=== PATIENT | female | born 1960 | race African-American/Black ===

== ENCOUNTER 2016-05-24 08:18 | Day surgery (SDC) | payer OTHER ==
[~2016-05-24] VITALS: Ht 165.1 cm; Wt 59.4 kg
[~2016-05-24 08:18] MED LIST: BUDE180A IH; BUPIVACAINE MPF 0.5% 30 ML VIAL. ONE; CEFAZOLIN 1GM IVPB FOR OMNI 50 ML IV PRN; CYCL5TAB PO; DOXY100C14 PO; FENTANYL PF 100 MCG/2 ML VIAL. IV PRN; HYDR-971 PO; HYDR12.58 PO; HYDROMORPHONE 2 MG/ML VIAL. IV PRN; IBUP-1007 PO; IV RINGERS,LACTATED 1000ML 1,000 ML IV SCH; LIDOCAINE 1% 1 ML SYRINGE. ID PRN; LIDOCAINE 1% 20 ML VIAL. ONE; MORPHINE SULFATE 2 MG/ML DISP.SYRIN. IV PRN; ONDANSETRON PF 4 MG/2 ML VIAL. IV PRN; OXYC-323 PO; PROCHLORPERAZINE 10 MG/2 ML VIAL. IV PRN; SIMV40TA3 PO; VENTOLIN HFA18 GM IH; flexeril PO
--- NOTE | 2016-05-24 08:29 | PDOC ---
BRIEF OPERATIVE NOTE Date: May 24, 2016 Pre-Op Diagnosis R CTS Post-Op Diagnosis same Procedure Performed Open R CTR Surgeon Yair Anesthesia Type: Regional, Conscious Sedation Complications none AMERICO BROWN II, MD May 24, 2016 08:29
--- NOTE | 2016-05-24 08:29 | DISCH ---
DISCHARGE INSTRUCTIONS Condition on Discharge Condition on Discharge: Stable Activity After Discharge Activity Instructions for Disc: Other, see below Bathing Instructions: Shower-keep dressing dry Lifting Instructions after Dis: No heavy lifting, No pulling or pushing, Do not lift >10 pounds Weight Bearing Status after Di: As tolerated Diet after Discharge Diet after Discharge: Regular Wound Incision Care Wound/Incision Care: Ice to area for comfort, Keep wound/cast CDI, Keep wound elevated, Change dressing Contacting the DRAng after DC Call your doctor for: Concerns you may have Follow-Up Follow up with: Yair/Orlin in 2wks AMERICO BROWN II, MD May 24, 2016 08:28
[2016-05-24] MEDS ORDERED: MIDAZOLAM HCL/PF 2 MG/2 ML VIAL. ONE (09:27)
[2016-05-24] MEDS ORDERED: PROPOFOL 20 ML IV ONE (09:27)
[2016-05-24] MEDS ORDERED: LIDOCAINE 2% 100 MG/5 ML SYRINGE. ONE (09:27)
[2016-05-24] MEDS ORDERED: DEXAMETHASONE SOD PHOS 20 MG/5 ML VIAL. ONE (09:27)
[2016-05-24] MEDS ORDERED: ONDANSETRON PF 4 MG/2 ML VIAL. ONE (09:27)
[2016-05-24] MEDS ORDERED: FENTANYL PF 100 MCG/2 ML VIAL. ONE (09:27)
[2016-05-24] MEDS ORDERED: SEVOFLURANE 16 TO 30 MINUTES. IH ONE (10:47)
[2016-05-24] MEDS: FENTANYL PF 100 MCG/2 ML VIAL. IV PRN ×2 (11:07→11:25)
--- NOTE | 2016-05-24 11:39 | OP ---
DATE OF SURGERY: 05/24/2016 SURGEON: Jn Brown MD ANESTHESIA: General. PREOPERATIVE DIAGNOSIS: Right carpal tunnel syndrome. POSTOPERATIVE DIAGNOSIS: Right carpal tunnel syndrome. PROCEDURE PERFORMED: Open right carpal tunnel release. TOURNIQUET TIME: 13 minutes. ESTIMATED BLOOD LOSS: 5 mL. COMPLICATIONS: None. REASON FOR PROCEDURE: The patient is a very pleasant 55-year-old female with electromyographically proven carpal tunnel syndrome and consistent clinical exam with this as well. She had gotten good initial relief from a corticosteroid injection; however, it did not give her lasting relief. We discussed the risks, benefits, alternatives to continued conservative therapy versus operative intervention and she elected to proceed with surgery. DESCRIPTION OF PROCEDURE: The patient was greeted in the preoperative area by myself. Correct extremity was marked and verified. After the anesthesiology team discussed different anesthetics, she opted to have a general with an LMA. She was taken back to the operative suite after I marked her arm and had successful induction of general anesthesia after we transferred her gently supine to the OR table. We then attached the arm board to her right side as well as a tourniquet at her right upper arm. The right upper extremity was then prepped and draped in our usual sterile fashion. We then conducted a standard preoperative timeout. I then exsanguinated the extremity with an Esmarch and tourniquet was insufflated to 250 mmHg. After this, I made a straight longitudinal incision centered at her palmar crease proceeding to her distal wrist crease. I dissected the subcutaneous tissue with tenotomies and cauterized bleeders with bipolar cautery. I identified the palmar fascia and incised this in line with the skin incision. I then identified the transverse carpal ligament and used a scalpel to transect this. I then placed a self-retaining retractor to spread apart the incision and a Ragnell at its distal portion and then spread above and below the remainder of the transverse carpal ligament and transected this with my tenotomies. I then repeated this maneuver in an ulnar directed fashion at the proximal portion of the incision to release the distal antebrachial fascia. After this, I cauterized another small bleeder and then irrigated out the operative field with sterile normal saline. The incision was then closed with a combination of mattress and simple 2-0 nylon. I then infiltrated the john-incisional area with a 50:50 local anesthetic mixture, using approximately 10 mL. After this, the arm was cleansed and dried and sterile dressing followed by a soft bulky dressing was applied. Tourniquet was let down. She was awakened from anesthesia, extubated, and transferred gently supine to the recovery room cart and taken to PACU in stable and extubated condition. Postop plan is to discharge her home. She will follow up with myself in clinic in 2 weeks, sooner should problems arise. JN BROWN MD DR: LEWIS/lakisha JOB#: [id number] / [id number] JESSICA
[2016-05-24] MEDS ORDERED: OXYC-244 PO ×2 (11:41→11:42)
[2016-05-24] MEDS ORDERED: ONDA4TAB10 SL (11:43)
[2016-05-24] MEDS ORDERED: DOCU-27 PO (11:44)
[2016-05-24] MEDS ORDERED: OXYCODONE/APAP 7.5/325 TABLET. PO ONE (12:00)
[2016-05-24 12:13] VITALS: BP 121/63
== END 2016-05-24 12:35 | disposition home or self-care (01) ==
LOC: SURG 08:18
PROVIDERS: ATTEND Orthopaedic Surgery Sports Medicine
DX: G56.01 Carpal tunnel syndrome, right upper limb (principal); E78.00 Pure hypercholesterolemia, unspecified; I10 Essential (primary) hypertension; J45.909 Unspecified asthma, uncomplicated; M19.90 Unspecified osteoarthritis, unspecified site; Z90.710 Acquired absence of both cervix and uterus; Z72.89 Other problems related to lifestyle
CPT/HCPCS: 64721; J0690; J1100; J2250; J2405; J2704; J3010; J3490

== ENCOUNTER → 2016-08-30 | Outpatient (CLI) | payer OTHER ==
[~2016-08-30] MED LIST changes: -BUPIVACAINE MPF 0.5% 30 ML VIAL. ONE; -CEFAZOLIN 1GM IVPB FOR OMNI 50 ML IV PRN; +DOCU-109 PO; -FENTANYL PF 100 MCG/2 ML VIAL. IV PRN; -HYDROMORPHONE 2 MG/ML VIAL. IV PRN; -IV RINGERS,LACTATED 1000ML 1,000 ML IV SCH; -LIDOCAINE 1% 1 ML SYRINGE. ID PRN; -LIDOCAINE 1% 20 ML VIAL. ONE; -MORPHINE SULFATE 2 MG/ML DISP.SYRIN. IV PRN; +ONDA4TAB10 SL; -ONDANSETRON PF 4 MG/2 ML VIAL. IV PRN; +OXYC-327 PO; -PROCHLORPERAZINE 10 MG/2 ML VIAL. IV PRN
--- NOTE | 2016-08-31 08:47 | RAD ---
DATE: 08/30/2016 EXAM: DIGITAL SCREEN BILAT W/CAD HISTORY: Screening COMPARISON: 06/16/2015 This study was interpreted with the benefit of Computerized Aided Detection (CAD ). FINDINGS: Breast Density: . There has been little change compared to the previous exam IMPRESSION: Benign findings BI-RADS CATEGORY: 2 BENIGN FINDING(S) RECOMMENDED FOLLOW-UP: 12M 12 MONTH FOLLOW-UP PQRS compliance statement: Patient information was entered into a reminder system with a target due date 08/30/2017 for the next mammogram. Mammography is a sensitive method for finding small breast cancers, but it does not detect them all and is not a substitute for careful clinical examination. A negative mammogram does not negate a clinically suspicious finding and should not result in delay in biopsying a clinically suspicious abnormality. "Our facility is accredited by the [employer] Mammography Program." MEGHANND
== END | disposition home or self-care (01) ==
LOC: MAMMO 12:55
PROVIDERS: ATTEND Family Medicine
DX: Z12.31 Encounter for screening mammogram for malignant neoplasm of breast (principal)
CPT/HCPCS: G0202; 77067

== ENCOUNTER → 2017-08-31 | Outpatient (CLI) | payer OTHER | END | disposition home or self-care (01) | LOC: MAMMO 13:58 | DX: Z12.31 Encounter for screening mammogram for malignant neoplasm of breast (principal); I10 Essential (primary) hypertension; E11.9 Type 2 diabetes mellitus without complications; E78.5 Hyperlipidemia, unspecified; E78.00 Pure hypercholesterolemia, unspecified; K21.9 Gastro-esophageal reflux disease without esophagitis | CPT/HCPCS: 77067 ==

== ENCOUNTER 2017-10-08 06:05 | Day surgery (SDC) | payer OTHER ==
[~2017-10-08] VITALS: Ht 162.6 cm; Wt 58.1 kg
[~2017-10-08 06:05] MED LIST changes: +ALEN70TA3 PO; +ASPI-630 PO; +BUPIVACAINE 0.5% 50 ML VIAL. ONE; +CALC1TAB75 PO; +LIDOCAINE 1% PF 30 ML VIAL. ONE; +MELO7.5T29 PO; +PROAIR RESPICL90 MCG IH; +ZOLP5TAB PO
[2017-10-08] MEDS ORDERED: LIDOCAINE 1% PF 2 ML VIAL. ID PRN (07:00)
[2017-10-08] MEDS ORDERED: HYDROmorphone 2 MG/ML VIAL IV PRN (07:00)
[2017-10-08] MEDS ORDERED: PROCHLORPERAZINE 10 MG/2 ML VIAL. IV PRN (07:00)
[2017-10-08] MEDS ORDERED: ONDANSETRON PF 4 MG/2 ML VIAL. IV PRN (07:00)
[2017-10-08] MEDS ORDERED: MORPHINE SULFATE 2 MG/ML VIAL. IV PRN (07:00)
[2017-10-08] MEDS ORDERED: IV RINGERS,LACTATED 1000ML 1,000 ML IV SCH (07:00)
[2017-10-08] MEDS ORDERED: fentaNYL PF VIAL 100 MCG/2 ML VIAL IV PRN (07:00)
[2017-10-08] MEDS ORDERED: PROPOFOL 20 ML IV ONE (07:27)
[2017-10-08] MEDS ORDERED: LIDOCAINE 2% PF Vial for OR 5 ML VIAL. ONE (07:27)
[2017-10-08] MEDS ORDERED: ONDANSETRON PF 4 MG/2 ML VIAL. ONE (07:27)
[2017-10-08] MEDS ORDERED: fentaNYL PF VIAL 100 MCG/2 ML VIAL ONE ×2 (07:27→08:49)
[2017-10-08] MEDS ORDERED: DEXAMETHASONE SOD PHOS 20 MG/5 ML VIAL. ONE (07:27)
[2017-10-08] MEDS ORDERED: ePHEDrine PF IN SALINE 50 MG/5 ML DISP.SYRIN IV ONE (08:04)
[2017-10-08] MEDS ORDERED: LIDOCAINE 1% PF 30 ML VIAL. INJ ONE (08:15)
--- NOTE | 2017-10-08 08:36 | DISCH ---
DISCHARGE INSTRUCTIONS Condition on Discharge Condition on Discharge: Stable Activity After Discharge Activity Instructions for Disc: Other, see below Bathing Instructions: Shower-keep dressing dry Lifting Instructions after Dis: No heavy lifting, No pulling or pushing, Do not lift >10 pounds Weight Bearing Status after Di: As tolerated Diet after Discharge Diet after Discharge: Regular Wound Incision Care Wound/Incision Care: Ice to area for comfort, Keep wound/cast CDI, Keep wound elevated, Change dressing Other wound/incision instructi: ok to change dressing in 2 days Contacting the DRAng after DC Call your doctor for: Concerns you may have Follow-Up Follow up with: Yair in 2 days AMERICO BROWN II, MD Oct 08, 2017 08:36
--- NOTE | 2017-10-08 08:41 | PDOC4 ---
Operative Note Operative Note Date of procedure: 10/08/2017 Surgeon: Jn Brown Preoperative diagnosis: Left carpal tunnel syndrome Postoperative diagnosis: Same Procedure performed: Open left carpal tunnel release Anesthesia: Gen. Tourniquet time: Less than 30 minutes Blood loss: 2 mL Findings: Normal-appearing median nerve Complications: None Reason for procedure: Patient is a very pleasant 56-year-old female who underwent successful open right carpal tunnel release with myself several weeks ago, she had bilateral disease, she had failed conservative therapies including injections, anti-inflammatories, wrist splints. She wished to proceed with surgery on the left side as she had felt she had recovered well enough on her right side. We reviewed the risks, benefits, and alternatives. Description of procedure: Patient was greeted in the preoperative area by myself for the correct extremity was verified and marked. She was taken back to the operative suite, antibiotic started as she was brought back. Once in the operating room, transferred gently supine to the operating room table. Underwent successful induction of a general anesthetic. The hand board attached to the OR table. Nonsterile tourniquet applied to her left upper extremity. Left upper extremity then prepped and draped in our usual sterile fashion. We conducted our standard preoperative timeout. The extremity was exsanguinated with an Esmarch and tourniquet insufflated to 250 mmHg. I then made an incision through a palmar wrist crease from her distal wrist crease into her palm. I incised skin with a scalpel and used bipolar cautery for a couple of bleeders. I then used a mosquito to dissect the subcutaneous tissue and placed my self- retaining retractor. After this, used a scalpel to incise the palmar fascia in line with the skin incision and identified the transverse carpal ligament and released sharply. I then placed a Ragnell retractor at the distal extent of the incision and spread above and below a small remaining portion of my transverse carpal ligament with tenotomies and release this. I then repeated this maneuver and an ulnar directed fashion to release the distal antebrachial fascia in the proximal portion of the incision. I then used the tip of the tenotomies to palpate along the entire course of the nerve to help ensure that accomplished a complete release, which I was confident I had. I then irrigated out the incision and closed skin with 3-0 nylon in a horizontal mattress fashion. The arm and hand were then cleansed and dried, injected my local anesthetic mixture into the john-incisional area. After this, a sterile bulky soft dressing was applied. She was then awakened from anesthesia. No complications. All counts correct 2 prior to wound closure. At the conclusion of the surgery, she was transferred gently supine to the recovery room cart and taken to the PACU in a stable and extubated condition. Postoperative plan is to encourage active range of motion at wrist and fingers. Dressing and follow-up instructions were given to her in written form. We will see her back in 2 weeks, sooner should a problem arise JN BROWN II, MD Oct 08, 2017 08:41
[2017-10-08] MEDS: fentaNYL PF VIAL 100 MCG/2 ML VIAL IV PRN ×4 (08:53→09:14)
[2017-10-08 09:22] VITALS: BP 135/66
[2017-10-08] MEDS ORDERED: OXYC-327 PO (09:26)
[2017-10-08] MEDS ORDERED: oxyCODONE/APAP 7.5/325 1 TAB TABLET PO PRN (09:30)
== END 2017-10-08 09:58 | disposition home or self-care (01) ==
LOC: SURG 06:05
PROVIDERS: ATTEND Orthopaedic Surgery Sports Medicine
DX: G56.02 Carpal tunnel syndrome, left upper limb (principal); I10 Essential (primary) hypertension; E78.5 Hyperlipidemia, unspecified; M19.90 Unspecified osteoarthritis, unspecified site; M50.30 Other cervical disc degeneration, unspecified cervical region; Z90.710 Acquired absence of both cervix and uterus; M81.0 Age-related osteoporosis without current pathological fracture; Z98.890 Other specified postprocedural states; Z90.49 Acquired absence of other specified parts of digestive tract; Z83.6 Family history of other diseases of the respiratory system; F17.210 Nicotine dependence, cigarettes, uncomplicated; Z79.82 Long term (current) use of aspirin; Z79.899 Other long term (current) drug therapy
CPT/HCPCS: 64721; A7015; J0690; J1100; J2001; J2405; J2704; J3010; J3490

== ENCOUNTER 2017-12-31 15:40 | Emergency (ER) | payer OTHER ==
[~2017-12-31] VITALS: Ht 162.6 cm; Wt 59.0 kg
[~2017-12-31 15:40] MED LIST changes: -BUPIVACAINE 0.5% 50 ML VIAL. ONE; +HYDR-3164 PO; -HYDR-971 PO; -LIDOCAINE 1% PF 30 ML VIAL. ONE
[2017-12-31] MEDS ORDERED: ONDANSETRON PF 4 MG/2 ML VIAL. IV ONE (16:00)
[2017-12-31] MEDS ORDERED: IV NORMAL SALINE 1000ML BAG 1,000 ML IV ONE (16:00)
[2017-12-31] MEDS ORDERED: fentaNYL PF VIAL 100 MCG/2 ML VIAL IV ONE (16:00)
[2017-12-31] MEDS ORDERED: CONTRAST GIVEN. MC PRN (16:15)
[2017-12-31] MEDS ORDERED: IOHEXOL 300 MG/ML 100ML VIAL. IV ONE (16:15)
[2017-12-31 16:30] LABS: BASO % 1 % (0-3); EOS % 1 % (0-3); LYMPH # 2.1 x10^3/uL (1.0-4.8); LYMPH % 43 % (24-48); MEAN CORPUSCULAR HEMOGLOBIN 28 pg (25-35); MEAN CORPUSCULAR HGB CONC 33 g/dL (31-37); MEAN CORPUSCULAR VOLUME 83 fL (79-100); MONO # 0.3 x10^3/uL (0.0-1.1); MONO % 6 % (0-9); NEUT # 2.5 x10^3uL (1.8-7.7); NEUT % 50 % (31-73); PLATELET COUNT 383 x10^3/uL (140-400); RED BLOOD COUNT 5.04 x10^6/uL (3.50-5.40); RED CELL DISTRIBUTION WIDTH 13.4 % (11.5-14.5)
[2017-12-31 16:31] LABS: BILIRUBIN,URINE NEGATIVE (NEG); CLARITY,URINE CLEAR; COLOR,URINE YELLOW; NITRITE,URINE NEGATIVE (NEG); PH,URINE 7.5; PROTEIN,URINE NEGATIVE (NEG-TRACE); UROBILINOGEN,URINE 0.2 mg/dL (0.2 mg/dL)
[2017-12-31 16:40] LABS: BACTERIA,URINE MANY /HPF (0-FEW); RBC,URINE 0 /HPF (0-2); SQUAMOUS EPITHELIAL CELL,UR MANY /LPF
[2017-12-31 16:42] LABS: CALCIUM 9.8 mg/dL (8.5-10.1); CREATININE 0.9 mg/dL (0.6-1.0); GFR 78.1
[2017-12-31 16:48] LABS: ALBUMIN 4.2 g/dL (3.4-5.0); ALBUMIN/GLOBULIN RATIO 1.1 (1.0-1.7); TOTAL BILIRUBIN 0.5 mg/dL (0.2-1.0); TOTAL PROTEIN 8.1 g/dL (6.4-8.2)
--- NOTE | 2017-12-31 17:18 | RAD ---
PQRS Compliance statement: One or more of the following individualized dose reduction techniques were utilized for this examination: 1. Automated exposure control. 2. Adjustment of the mA and/or kV according to patient size. 3. Use of iterative reconstruction technique. Indication:RECTAL BLEEDING, ABD PAIN SINCE SUNDAY.
IV OMNI 300 75 MLS
PREVIOUS TECHNIQUE: CT abdomen and pelvis with IV contrast with multiplanar reformats. COMPARISON: 10/14/2013 FINDINGS: Heart is normal in size. No pericardial or pleural effusion. Clear lung bases. Liver, spleen, gallbladder, pancreas, left adrenal and kidneys are within normal limits. 3.1 x 1.5 cm nodule is seen in the lateral limb of the right adrenal gland also present on previous exam as well from 2012 and is most likely an adrenal adenoma.. No enlarged retroperitoneal or pelvic adenopathy. No free pelvic fluid or ascites. Circumferential wall thickening of the rectum noted measuring 1.3 cm. No perirectal inflammatory changes. No bowel obstruction. Uterus is not visualized likely surgically absent. Urinary bladder is within normal limits. Also noted is short segment wall thickening of the distal descending and proximal sigmoid colon. No pneumoperitoneum or pneumatosis intestinalis. No suspicious bony lesion. IMPRESSION: 1. Circumferential wall thickening of the rectum can be from proctitis although rectal malignancy is not ruled out. Clinically correlate with nonemergent colonoscopy. 2. Short segment wall thickening of the distal descending and proximal sigmoid colon may be from suboptimal distention or mild colitis. No bowel obstruction. Electronically signed by: Giorgi Ribeiro DO (12/31/2017 5:15 PM) [facility]
[2017-12-31 17:30] VITALS: BP 116/61
[2017-12-31] MEDS ORDERED: HYDR28.311 RC (17:30)
--- NOTE | 2017-12-31 17:31 | PHYS DOC ---
Past Medical History Past Medical History: Arthritis, Asthma, Hypertension Additional Past Medical Histor: OSTEOARTHRITIS, THROMBOCYTOSIS, KIDNEY DISEASE , INSOMNIA Past Surgical History: Appendectomy, Hysterectomy Alcohol Use: Occasionally Drug Use: Marijuana Adult General Chief Complaint Chief Complaint: RECTAL BLEED HPI HPI Patient is a 57 year old [f__sex] who presents with [] Review of Systems Review of Systems Constitutional: Denies fever or chills [] Eyes: Denies change in visual acuity, redness, or eye pain [] HENT: Denies nasal congestion or sore throat [] Respiratory: Denies cough or shortness of breath [] Cardiovascular: No additional information not addressed in HPI [] GI: Denies abdominal pain, nausea, vomiting, bloody stools or diarrhea [] : Denies dysuria or hematuria [] Musculoskeletal: Denies back pain or joint pain [] Integument: Denies rash or skin lesions [] Neurologic: Denies headache, focal weakness or sensory changes [] Endocrine: Denies polyuria or polydipsia [] All other systems were reviewed and found to be within normal limits, except as documented in this note. Current Medications Current Medications Current Medications Medications (Trade) Dose Ordered Sig/Anand Start Time Stop Time Status Last Admin Dose Admin Fentanyl Citrate (Fentanyl 2ml Vial) 50 mcg 1X ONCE 12/31/17 16:00 12/31/17 16:01 DC 12/31/17 16:25 50 MCG Info (CONTRAST GIVEN -- Rx MONITORING) 1 each PRN DAILY PRN 12/31/17 16:15 01/02/18 16:14 Iohexol (Omnipaque 300 Mg/ml) 75 ml 1X ONCE 12/31/17 16:15 12/31/17 16:16 DC 12/31/17 16:15 75 ML Ondansetron HCl (Zofran) 4 mg 1X ONCE 12/31/17 16:00 12/31/17 16:01 DC Sodium Chloride 1,000 ml @ 1,000 mls/hr 1X ONCE 12/31/17 16:00 12/31/17 16:59 DC Allergies Allergies Allergies Coded Allergies Type Severity Reaction Last Updated Verified No Known Drug Allergies 10/08/17 No Physical Exam Physical Exam Constitutional: Well developed, well nourished, no acute distress, non-toxic appearance. [] HENT: Normocephalic, atraumatic, bilateral external ears normal, oropharynx moist, no oral exudates, nose normal. [] Eyes: PERRLA, EOMI, conjunctiva normal, no discharge. [] Neck: Normal range of motion, no tenderness, supple, no stridor. [] Cardiovascular:Heart rate regular rhythm, no murmur [] Lungs & Thorax: Bilateral breath sounds clear to auscultation [] Abdomen: Bowel sounds normal, soft, no tenderness, no masses, no pulsatile masses. [] Skin: Warm, dry, no erythema, no rash. [] Back: No tenderness, no CVA tenderness. [] Extremities: No tenderness, no cyanosis, no clubbing, ROM intact, no edema. [] Neurologic: Alert and oriented X 3, normal motor function, normal sensory function, no focal deficits noted. [] Psychologic: Affect normal, judgement normal, mood normal. [] Current Patient Data Vital Signs Vital Signs Date Time Temp Pulse Resp B/P (MAP) Pulse Ox O2 Delivery O2 Flow Rate FiO2 12/31/17 16:25 24 100 Room Air 12/31/17 15:40 97.6 69 202/108 (139) 97.6 Lab Values Laboratory Tests Test 12/31/17 16:07 12/31/17 16:20 Urine Collection Type Unknown Urine Color Yellow Urine Clarity Clear Urine pH 7.5 Urine Specific [place] 1.015 Urine Protein Negative mg/dL (NEG-TRACE) Urine Glucose (UA) Negative mg/dL (NEG) Urine Ketones (Stick) Negative mg/dL (NEG) Urine Blood Negative (NEG) Urine Nitrite Negative (NEG) Urine Bilirubin Negative (NEG) Urine Urobilinogen Dipstick 0.2 mg/dL (0.2 mg/dL) Urine Leukocyte Esterase Negative (NEG) Urine RBC 0 /HPF (0-2) Urine WBC 1-4 /HPF (0-4) Urine Squamous Epithelial Cells Many /LPF Urine Bacteria Many /HPF (0-FEW) White Blood Count 5.0 x10^3/uL (4.0-11.0) Red Blood Count 5.04 x10^6/uL (3.50-5.40) Hemoglobin 14.0 g/dL (12.0-15.5) Hematocrit 42.0 % (36.0-47.0) Mean Corpuscular Volume 83 fL (79-100) Mean Corpuscular Hemoglobin 28 pg (25-35) Mean Corpuscular Hemoglobin Concent 33 g/dL (31-37) Red Cell Distribution Width 13.4 % (11.5-14.5) Platelet Count 383 x10^3/uL (140-400) Neutrophils (%) (Auto) 50 % (31-73) Lymphocytes (%) (Auto) 43 % (24-48) Monocytes (%) (Auto) 6 % (0-9) Eosinophils (%) (Auto) 1 % (0-3) Basophils (%) (Auto) 1 % (0-3) Neutrophils # (Auto) 2.5 x10^3uL (1.8-7.7) Lymphocytes # (Auto) 2.1 x10^3/uL (1.0-4.8) Monocytes # (Auto) 0.3 x10^3/uL (0.0-1.1) Eosinophils # (Auto) 0.0 x10^3/uL (0.0-0.7) Basophils # (Auto) 0.0 x10^3/uL (0.0-0.2) Sodium Level 141 mmol/L (136-145) Potassium Level 4.0 mmol/L (3.5-5.1) Chloride Level 103 mmol/L (98-107) Carbon Dioxide Level 28 mmol/L (21-32) Anion Gap 10 (6-14) Blood Urea Nitrogen 10 mg/dL (7-20) Creatinine 0.9 mg/dL (0.6-1.0) Estimated GFR (Cockcroft-Gault) 78.1 BUN/Creatinine Ratio 11 (6-20) Glucose Level 101 mg/dL (70-99) H Calcium Level 9.8 mg/dL (8.5-10.1) Total Bilirubin 0.5 mg/dL (0.2-1.0) Aspartate Amino Transferase (AST) 17 U/L (15-37) Alanine Aminotransferase (ALT) 20 U/L (14-59) Alkaline Phosphatase 65 U/L (46-116) Total Protein 8.1 g/dL (6.4-8.2) Albumin 4.2 g/dL (3.4-5.0) Albumin/Globulin Ratio 1.1 (1.0-1.7) Laboratory Tests 12/31/17 16:20 Laboratory Tests 12/31/17 16:20 EKG EKG [] Radiology/Procedures Radiology/Procedures []Signed PATIENT: ESTEVAN ORR ACCOUNT: [id number] : 1960 LOCATION: ER AGE: 57 SEX: F EXAM STATUS: REG ER ORD. PHYSICIAN: DIONY YANEZ APRN REASON: rectal bleeding PROCEDURE: CT ABD PELV W/ IV CONTRST ONLY PQRS Compliance statement: One or more of the following individualized dose reduction techniques were utilized for this examination: 1. Automated exposure control. 2. Adjustment of the mA and/or kV according to patient size. 3. Use of iterative reconstruction technique. Indication:RECTAL BLEEDING, ABD PAIN SINCE SUNDAY.
IV OMNI 300 75 MLS
PREVIOUS TECHNIQUE: CT abdomen and pelvis with IV contrast with multiplanar reformats. COMPARISON: 10/14/2013 FINDINGS: Heart is normal in size. No pericardial or pleural effusion. Clear lung bases. Liver, spleen, gallbladder, pancreas, left adrenal and kidneys are within normal limits. 3.1 x 1.5 cm nodule is seen in the lateral limb of the right adrenal gland also present on previous exam as well from 2012 and is most likely an adrenal adenoma.. No enlarged retroperitoneal or pelvic adenopathy. No free pelvic fluid or ascites. Circumferential wall thickening of the rectum noted measuring 1.3 cm. No perirectal inflammatory changes. No bowel obstruction. Uterus is not visualized likely surgically absent. Urinary bladder is within normal limits. Also noted is short segment wall thickening of the distal descending and proximal sigmoid colon. No pneumoperitoneum or pneumatosis intestinalis. No suspicious bony lesion. IMPRESSION: 1. Circumferential wall thickening of the rectum can be from proctitis although rectal malignancy is not ruled out. Clinically correlate with nonemergent colonoscopy. 2. Short segment wall thickening of the distal descending and proximal sigmoid colon may be from suboptimal distention or mild colitis. No bowel obstruction. Electronically signed by: Giorgi Ribeiro DO (12/31/2017 5:15 PM) [facility] DICTATED and SIGNED BY: GIORGI RIBEIRO DO DATE: 12/31/17 7450 Course & Med Decision Making Course & Med Decision Making Pertinent Labs and Imaging studies reviewed. (See chart for details) [] Dragon Disclaimer Dragon Disclaimer This electronic medical record was generated, in whole or in part, using a voice recognition dictation system. Departure Departure Impression: Primary Impression: Rectal bleed Disposition: 01 HOME, SELF-CARE Condition: STABLE Referrals: ALEX PURI MD (PCP) URVASHI READ MD Patient Instructions: Rectal Bleeding Additional Instructions: Follow-up with GI for a colonoscopy. If worsening return to the emergency department. Scripts Hydrocortisone (PROCTOSOL-HC) 28.35 Gm Cream..g. 1 DEBORAH RC TID for rectal bleeding, #28.35 GM 1 Refill Prov: DIONY YANEZ APRN 12/31/17 DIONY YANEZ APRN Dec 31, 2017 17:31
== END 2017-12-31 17:45 | disposition home or self-care (01) ==
LOC: ER 15:40
DX: K62.5 Hemorrhage of anus and rectum (principal); I10 Essential (primary) hypertension; J45.909 Unspecified asthma, uncomplicated; Z90.89 Acquired absence of other organs; Z90.710 Acquired absence of both cervix and uterus
CPT/HCPCS: 36415; 74177; 80053; 81001; 85025; 87086; 96374; 99284; J3010; Q9967

== ENCOUNTER → 2021-03-23 | Outpatient (CLI) | payer MEDICARE, MEDICAID ==
[~2021-03-23] MED LIST changes: +CALC-627 PO; -CALC1TAB75 PO; +DOXY-181 PO; -DOXY100C14 PO; +HYDR28.337 RC; -OXYC-323 PO; -OXYC-327 PO; +OXYC1TAB15 PO; +OXYC1TAB19 PO; +SIMV40TA18 PO; -SIMV40TA3 PO
--- NOTE | 2021-03-23 16:28 | RAD ---
Bilateral digital screening 2-D and 3-D (digital breast tomosynthesis) mammogram: Reason for examination: Routine screening. Comparison: Mammograms from 08/31/2017 and 08/30/2016. Interpretation was made with the benefit of CAD. FINDINGS: Breast density: Category B. There are scattered areas of fibroglandular density. No suspicious breast mass, malignant appearing calcifications, or architectural distortion is seen. T here are oval circumscribed masses in both breasts which are unchanged. One in the right inner lower quadrant is very superficial and may represent a sebaceous cyst or skin lesion. IMPRESSION: No evidence of malignancy. Assessment: BI-RADS 2. Benign findings. Recommendation: Routine screening mammograms. The patient will receive a letter with the results in the mail. Patient information will be entered i nto the mammography reminder system with a target recall date for the next mammogram. A reminder barby er will be generated. Electronically signed by: Sabrina Cardozo MD (03/23/2021 4:25 PM) [id number]
--- NOTE | 2021-03-23 17:56 | RAD ---
MR#: [id number] Date of Study: 03/23/2021 Ordering Physician: ALEX PURI Referring Physician: RADHA CERON Tech: APPROVED REPORT Test Type: Exercise Stress Nurse/Tech: Toya El RN Test Indications: Hyperlipidemia and chest pain Cardiac History: No known cardiac Medications: See Electronic Medical Record Medical History: See Electronic Medical Record Resting ECG: SR Resting Heart Rate: 75 bpm Resting Blood Pressure: 123/60mmHg Pretest Chest Pain: No chest pain Nurse/Tech Notes S1,S2 and lungs clear to auscultation. Stress Symptoms Fatigue POST EXERCISE Reason for Termination: Patient request Target HR: No Max HR: 131 bpm 82% of Maximum Predicted HR: 160 bpm Exercise duration: 4:54 min:sec, 2 Stage Exercise capacity: 7.0METs Max Blood Pressure: 153/72mmHg Blood Pressure response to exercise: Normal blood pressure response during stress. Heart Rate response to exercise: WNL Chest Pain: No. Arrhythmia: No. ST Change: No. INTERPRETATION Stress EKG Conclusion: The resting EKG showed a sinus rhythm with mild nonspecific ST-T wave changes. The stress EKG showed no significant changes from baseline. No EKG evidence of stress-induced ischemia at this level of exertion. Conclusion 1. Moderate exercise tolerance with the patient walking for 4 minutes and 54 seconds on a Jose A alise col. 2. No reported chest pain with exertion. 3. Peak heart rate of 131 bpm which is 82% of predicted, slightly below goal of 85% of predicted. 4. No EKG evidence of ischemia or significant arrhythmias at this level exertion. Signed by : David Workman MD Electronically Approved : 03/23/2021 17:56:16
== END ==
LOC: MAMMO 12:08
PROVIDERS: ATTEND Family Medicine
DX: Z12.31 Encounter for screening mammogram for malignant neoplasm of breast (principal); R07.9 Chest pain, unspecified; E78.5 Hyperlipidemia, unspecified; Z87.891 Personal history of nicotine dependence
CPT/HCPCS: 77063; 77067; 93017